=== PATIENT | male | born 1985 | race Hispanic/Latino ===

== ENCOUNTER 2017-06-05 09:07 | Emergency (ER) | payer OTHER ==
[2017-06-05] MEDS ORDERED: Sodium Chloride 0.9% 1,000 ML IV STA (10:03)
[2017-06-05] MEDS ORDERED: Promethazine DM 12.5 mg-30 mg/10 ml Syrup PO STA (10:04)
--- NOTE | 2017-06-05 10:34 | ED PDOC ---
HPI: General Adult Time Seen by Provider: 06/05/17 09:56 Chief Complaint (Nursing): Flu-like Symptoms Chief Complaint (Provider): flu-like symptoms History Per: Patient, Family History/Exam Limitations: no limitations Onset/Duration Of Symptoms: Days (1), Sudden Onset Current Symptoms Are (Timing): Still Present Severity: Moderate Additional Complaint(s): 32yo male states returned from [place] this weekend afterwards felt chills, cough, sore throat, headache, body aches and fatigue. Denies vomiting or diarrhea. Denies abd pain other than when coughing. No syncope, SOB or hemoptysis. Past Medical History Reviewed: Historical Data, Nursing Documentation, Vital Signs Vital Signs: Last Vital Signs Temp 101.8 F H 06/05/17 09:13 Pulse 118 H 06/05/17 09:13 Resp 21 06/05/17 09:13 BP 139/83 06/05/17 09:13 Pulse Ox 95 06/05/17 09:13 - Medical History Other PMH: nephrotic syndrome many years ago, PE completed AC therapy; no current Rx - Surgical History Other surgeries: stomach surgery as infant - Living Arrangements Living Arrangements: With Family - Social History Current smoker - smoking cessation education provided: No - Allergies Allergies/Adverse Reactions: Allergies Allergy/AdvReac Type Severity Reaction Status Date / Time No Known Allergies Allergy Verified 06/05/17 09:36 Review of Systems Constitutional: Positive for: Fever, Chills ENT: Positive for: Throat Pain. Negative for: Ear Discharge, Throat Swelling Gastrointestinal: Positive for: Nausea. Negative for: Vomiting, Abdominal Pain , Diarrhea Genitourinary Male: Negative for: Dysuria Musculoskeletal: Positive for: Other (aches and pains). Negative for: Back Pain Skin: Negative for: Rash, Jaundice Neurological: Positive for: Headache. Negative for: Weakness, Numbness, Seizures Physical Exam - Reviewed Nursing Documentation Reviewed: Yes Vital Signs Reviewed: Yes - Physical Exam Appears: Positive for: Well, Non-toxic, Uncomfortable. Negative for: In Acute Distress Head Exam: Positive for: ATRAUMATIC, NORMAL INSPECTION, NORMOCEPHALIC Skin: Positive for: Normal Color, Warm, DRY Eye Exam: Positive for: EOMI, Normal appearance, PERRL ENT: Positive for: Pharyngeal Erythema Neck: Positive for: Normal, Painless ROM Cardiovascular/Chest: Positive for: Regular Rate, Rhythm Respiratory: Positive for: CNT, Normal Breath Sounds Gastrointestinal/Abdominal: Positive for: Bowel Sounds, Soft. Negative for: Tenderness, Guarding Back: Positive for: Normal Inspection Extremity: Positive for: Normal ROM Neurologic/Psych: Positive for: Alert, Oriented. Negative for: Motor/Sensory Deficits - ECG O2 Sat by Pulse Oximetry: 95 Medical Decision Making Medical Decision Making: febrile in ED, workup for flu like illness initiated Disposition - Disposition
[2017-06-05 10:38] LABS: BASO # 0.1 K/uL (0.0-0.2); BASO % 0.6 % (0.0-2.0); EOS # 0.3 K/uL (0.0-0.7); EOS % 3.8 % (0.0-4.0); HEMOGLOBIN 15.2 g/dL (12.0-18.0); LYMPH # 1.1 K/uL (1.0-4.3); LYMPH % 12.8 % (20.0-40.0); MEAN CELL VOLUME 86.1 fl (80.0-94.0); MEAN CORPUSCULAR HEMOGLOBIN 29.4 pg (27.0-31.0); MEAN CORPUSCULAR HGB CONC 34.2 g/dL (33.0-37.0); MONO # 1.7 K/uL (0.0-0.8); MONO % 19.1 % (0.0-10.0); NEUT # 5.7 K/uL (1.8-7.0); NEUT % 63.7 % (50.0-75.0); NRBC % 0.1 % (0.0-0.0); RBC 5.16 Mil/uL (4.40-5.90); RED CELL DISTRIBUTION WIDTH 12.6 % (11.5-14.5); WHITE BLOOD COUNT 8.9 K/uL (4.8-10.8)
[2017-06-05] MEDS ORDERED: Promethazine 6.25 MG/5 ML CUP ONE (10:40)
--- NOTE | 2017-06-05 10:49 | RAD ---
HISTORY: cough COMPARISON: No prior. TECHNIQUE: Chest PA and lateral FINDINGS: LUNGS: No active pulmonary disease. PLEURA: No significant pleural effusion identified. No pneumothorax apparent. CARDIOVASCULAR: Normal. OSSEOUS STRUCTURES: No significant abnormalities. VISUALIZED UPPER ABDOMEN: Normal. OTHER FINDINGS: None. IMPRESSION: No active disease.
[2017-06-05 10:53] LABS: ALBUMIN 4.6 g/dL (3.5-5.0); CALCIUM 9.5 mg/dL (8.4-10.2); GFR AFRICAN-AMERICAN > 60; GFR NON-AFRICAN AMERICAN > 60
[2017-06-05 10:55] LABS: ALB/GLOB RATIO 1.3 (1.0-2.1); ALT/SGPT 54 U/L (21-72); AST/SGOT 55 U/L (17-59); BLOOD UREA NITROGEN 10 mg/dl (9-20)
[2017-06-05 11:46] VITALS: TEMP 100
[2017-06-05 11:56] VITALS: BP 125/79; PULSE 85; RESP 14; O2SAT 100
== END 2017-06-05 11:56 | disposition home or self-care (01) ==
LOC: H.ER 09:07
DX: J09.X2 Influenza due to identified novel influenza A virus with other respiratory manifestations (principal)
CPT/HCPCS: 71046; 80053; 85025; 87804; 96372; 99284; J1885; J7040